=== PATIENT | male | born 1945 | race Caucasian/White ===

== ENCOUNTER 2020-08-14 11:03 | Emergency (ER) | payer MEDICARE, SELFPAY ==
--- NOTE | ~2020-08-14 | XR_ITS ---
EXAMINATION: XR wrist RT min 3V DATE: 08/14/2020 11:30 INDICATION: Generalized posterior right wrist pain post fall TECHNIQUE: Posteroanterior, ulnar deviation, oblique, and lateral views of the right wrist were obtai taj. COMPARISON: none FINDINGS: Bone alignment is normal. No acute fracture. Old healed fracture deformity at the neck of the fifth m etacarpal which has healed with mild palmar angulation. Mild chondrocalcinosis in the region of the t riangular fibrocartilage complex. 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 IMPRESSION: 1. No acute osseous abnormality. 2. 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 Reviewed, dictated and finalized at location A. IMPRESSION: 1. No acute osseous abnormality. 2. Polyarticular osteoarthritis, generally mild but severe at the right first c arpometacarpal joint.
[2020-08-14 11:14] VITALS: BP 167/91; PULSE 82; RESP 20; TEMP 37; O2SAT 99
[2020-08-14 11:32] VITALS: BP 167/91; PULSE 82; RESP 20; TEMP 37; O2SAT 99
--- NOTE | 2020-08-14 11:40 | ED.UPPEXIN ---
HPI - Extremity Injury (Upper) General Chief Complaint: Extremity Injury, Lower Stated Complaint: Injury to right Wrist Time Seen by Provider: 08/14/20 11:29 Source: patient and RN notes reviewed Mode of arrival: ambulatory Limitations: no limitations History of Present Illness HPI narrative: Patient presents today complaining of right wrist pain after a fall at home last night when he tripped down one step at his home. Reports pain dorsally. He does report some tingling in his hand. Pain increases with twisting of the wrist. Currently rates pain 7/10. He has tried no ecie-sff-etoenzj interventions prior to arrival. MD complaint: injury to: right and wrist Related Data Home Medications Medication Instructions Recorded Confirmed amlodipine 5 mg PO DAILY 08/14/20 08/14/20 meloxicam 7.5 mg PO DAILY 08/14/20 08/14/20 omeprazole 40 mg PO DAILY 08/14/20 08/14/20 tadalafil 2.5 mg PO DAILY 08/14/20 08/14/20 terazosin 5 mg PO HS 08/14/20 08/14/20 zolpidem 5 mg PO HS 08/14/20 08/14/20 Allergies Allergy/AdvReac Type Severity Reaction Status Date / Time No Known Allergies Allergy Verified 08/14/20 11:17 Review of Systems Review of Systems: Narrative: CONSTITUTIONAL: Denies body aches, fever, chills, or sweats. EYES: Denies visual changes, redness, or discharge. ENT: Denies rhinorrhea, congestion, sore throat, or otalgia. CARDIOVASCULAR: Denies chest pain, palpitations, or edema. RESPIRATORY: Denies cough or dyspnea. GASTROINTESTINAL: Denies abdominal pain, nausea, vomiting, or diarrhea. GENITOURINARY: Denies dysuria or hematuria. SKIN: Denies rash, itching, or wounds. MUSCULOSKELETAL: Denies back pain, or myalgia. + Right wrist injury NEUROLOGIC: Denies headache, numbness, tingling, or weakness. PSYCH: Denies depression or anxiety. [facility] Past Medical History Medical History (Updated 08/14/20 @ 11:44 by Annika Freeman, [employer], ) GERD (gastroesophageal reflux disease) Hypertension Social History Social History Gender identity (if verbalized by the patient): Male Comments At time of signature, I have reviewed and agree with nursing past medical, surgical, social and family history unless otherwise noted. Please see nursing chart for further information. There is no relevant family history pertinent to the presenting complaint Exam Narrative: Exam Narrative: GENERAL: Well-appearing, well-nourished, and in no acute distress. HEAD: Normocephalic, atraumatic. EYES: EOMI. No redness or drainage. Conjunctivae normal. ENT: Mucous membranes pink and moist. NECK: Normal AROM. CHEST: No respiratory distress. EXTREMITIES: Right wrist: Tenderness to the dorsum of the distal radius to palpation. No edema noted. No ecchymosis or erythema noted. No other tenderness noted about the wrist or hand. Pain with supination and pronation. Distal sensation intact. Capillary refill normal. Radial pulse normal. SKIN: Warm, dry, no rash. Capillary refill normal. Normal skin turgor. NEURO: No focal deficits. Alert and oriented x3. Gait steady. PSYCH: Normal affect. No signs of depression or anxiety. Course Vital Signs Vital signs: Vital Signs Temperature 98.6 F 08/14/20 11:14 Pulse Rate 82 08/14/20 11:14 Respiratory Rate 20 08/14/20 11:14 Blood Pressure 167/91 H 08/14/20 11:14 Pulse Oximetry 99 08/14/20 11:14 Temperature 98.6 F 08/14/20 11:32 Pulse Rate 82 08/14/20 11:32 Respiratory Rate 20 08/14/20 11:32 Blood Pressure 167/91 H 08/14/20 11:32 Pulse Oximetry 99 08/14/20 11:32 Reviewed. Pt has been instructed to follow up with his PCP regarding his elevated blood pressure today. MDM - Extremity Injury (Upper) Differential Diagnosis Differential diagnosis: Likely sprain and strain of wrist, fracture of wrist and fracture of hand Imaging Data Radiologist's impression: ITS Impressions Wrist X-Ray 08/14/20 11:32 IMPRESSION: 1. No acute osseous abnormality. 2. Polyartic
== END 2020-08-14 11:46 | disposition home or self-care (01) ==
PROVIDERS: Emergency Provider Nurse Practitioner; PCP Internal Medicine
DX: S63.501A Unspecified sprain of right wrist, initial encounter (principal); W10.9XXA Fall (on) (from) unspecified stairs and steps, initial encounter; K21.9 Gastro-esophageal reflux disease without esophagitis; I10 Essential (primary) hypertension
CPT/HCPCS: 73110; 99213; G0463